=== PATIENT | male | born 1980 | race Caucasian/White ===

== ENCOUNTER 2022-08-26 07:30 | Outpatient (RCR) | payer OTHER, SELFPAY | END 2022-08-29 12:17 | disposition home or self-care (01) | PROVIDERS: PCP Family Medicine; Visit Provider Family Medicine | DX: M75.52 Bursitis of left shoulder (principal); M25.512 Pain in left shoulder; G89.29 Other chronic pain; Z51.89 Encounter for other specified aftercare | CPT/HCPCS: 97110; 97140; 97161 ==

== ENCOUNTER 2024-09-18 14:26 | Emergency (ER) | payer OTHER, SELFPAY ==
--- OUTSIDE RECORDS SUMMARY | 2024-09-18 14:28 | XMS_ITS | Continuity of Care Document ---
Author Name [facility] Organization [facility] Care Team Providers Care Director Card Name Role Phone [facility] Unavailable Unavailable Problems Combined list of problems from Department of Defense and [facility] facilities. It does not include entries that were removed or entered in error. Problem Status Onset Date Problem Type Date of Resolution Comments Source Need For Vaccination Against Influenza Inactive Condition [facility] cellulitis Inactive Condition [facility] contact dermatitis Inactive Condition [facility] Need For Vaccination Hepatitis B Inactive Condition [facility] Need For Vaccination Hepatitis A Inactive Condition [facility] hemorrhoids Active Condition [facility] Need For Vaccination Against Combinations Of Diseases Inactive Condition [facility] Need For Prophylactic Antibiotics Inactive Condition [facility] assess patient condition work-related occupational disease Active Condition [facility] visit for: ears / hearing exam Active Condition [facility] Patient Education - Injury Prevention Active Condition [facility] visit for: services physical Active Condition [facility] Blood Typing Inactive Condition [facility] visit for: screening exam pulmonary tuberculosis Active Condition [facility] Allergies, Adverse Reactions, Alerts Combined list of allergies from Department of Defense and [facility] facilities. It does not include entries that were removed or entered in error. Substance Category Reaction Severity Reaction type Status Date Reported Comments Source No Known Allergies Drug allergy (disorder) active 04/27/2010 [facility] ROULA Campbell Encounters Combined list of: 1) Encounters from Department of Veterans Affairs facilities going back up to thelast 18 months. 2) Encounters from the Department of Defense facilities going back up to 280 months. Location Location Details Encounter Type Encounter Number Reason For Visit Attending Provider ADM Date DC Date Status Disposition Source [facility] ROULA Horowitz(IEP Optometry ) OUTPATIENT [id number] RAFFY REYNOLDS 04/05 Released w/o Limitations [facility] ROULA Horowitz(IEP Optomet ry) [facility] ROULA Horowitz(IEP Soldiers Initial Entry) OUTPATIENT [id number] DAY 1 TALON MCKENZIE 04/05 Released w/o Limitations [facility] ROULA Horowitz([place] Initial Entry) [facility] ROULA Horowitz(IEP Hearing Conservat ion Exam) OUTPATIENT [id number] BONILLA GOMEZ Edgar 04/06 Released w/o Limitations [facility] [place] Conserv ation Exam) [facility] ROULA Horowitz(IEP Soldiers Initial Entry) OUTPATIENT [id number] Day 3 NOAH GEIGER 04/06 Released w/o Limitations [facility] [place]) [facility] [place](C-T[facility] Er Module) OUTPATIENT [id number] MINA Collazo 04/27 Released w/o Limitations [facility] [place](C-TM C Er Module) [facility] ROULA Horowitz(IEP [place]iers Initial Entry) OUTPATIENT [id number] [place] LUKAS HO 05/10 Released w/o Limitations [facility] [place]) [facility] ROULA Horowitz(C-TMC Er Module) OUTPATIENT [id number] MINA BARDALES 06/22 Sick at Home/Quarter s [facility] Grider [facility] [place](C-TM C Er Module) [facility] ROULA Horowitz(IEP Soldiers Initial Entry) OUTPATIENT [id number] SILVER LIMON 06/26 Released w/o Limitations [facility] [place]) Procedures Combined list of: 1) Procedures from Department of Veterans Affairs facilities going back up to thelast 18 months, not all VA non-surgical procedures are included; 2) All procedures from the Department of Defense facilities. Procedure Procedure Type Code Date Perfomer Comments Sourc e Immunization Admin By Intranasal / Oral Route One Vaccine Immunization Admin By Intranasal / Oral Route One Vaccine 96436 06/26/2010 LUKAS HO Influenza Virus Vaccine Intranasal Live Attenuated 06/26/2010 [facility] HO Hepatitis A And Hepatitis B (Intramuscular Use) Adult Dosage Hepatitis A And Hepatitis B (Intramuscular Use) Adult Dosage 01925 05/10/2010 [facility] Immunization Administration By Injection, One Vaccine Immunization Administration By Injection, One Vaccine 02768 05/10/2010 [place] HO Meningococcal (A, C, Y, W-135) Oligosacch Diphtheria Toxoid Conj Vacc 04/07/2010 NOAH GEIGER Vaccines Viral Polio, Inactivated Vaccines Viral Polio, Inactivated 68551 04/07/2010 NOAH GEIGER Tdap Vaccine Tdap Vaccine 71270 04/07/2010 AMINAH GEIGER Hepatitis A And Hepatitis B (Intramuscular Use) Adult Dosage Hepatitis A And Hepatitis B (Intramuscular Use) Adult Dosage 90919 04/07/2010 NOAH GEIGER Immunization Administration By Injection, Each Additional Vaccine 04/07/2010 NOAH GEIGER Physician Supervised Injection Intramuscular Physician Supervised Injection Intramuscular 83986 04/07/2010 NOAH GEIGER Immunization Administration By Injection, One Vaccine Immunization Administration By Injection, One Vaccine 55548 04/07/2010 NOAH GEIGER Injection, penicillin G benzathine, up to 1,200,000 units 04/07/2010 NOAH GEIGER Audiometry Group Testing Audiometry Group Testing 66911 04/06/2010 BONILLA GOMEZ Screening Test Of Visual Acuity, Quantitative, Bilateral Screening Test Of Visual Acuity, Quantitative, Bilateral 38110 04/05/2010 RAFFY REYNOLDS Skin Test Anergy tuberculin Skin Test Anergy tuberculin 73325 04/05/2010 TALON MCKENZIE Immunization Administration By Injection, One Vaccine Immunization Administration By Injection, One Vaccine 32922 04/05/2010 TALON MCKENZIE Venipuncture Venipuncture 84752 04/05/2010 TALON MCKENZIE IMMUNIZATION ADMINISTRATION BY INTRANASAL OR ORAL ROUTE; 1 VACCINE (SINGLE OR COMBINATION VACCINE/TOXOID) 06/26/2010 [facility] HEPATITIS A AND HEPATITIS B VACCINE (HEPA-HEPB), ADULT DOSAGE, FOR INTRAMUSCULAR USE 05/10/2010 [facility] MENINGOCOCCAL CONJUGATE VACCINE, SEROGROUPS A, C, W, Y, QUADRIVALENT, DIPHTHERIA TOXOID CARRIER (MENACWY-D) OR IFT212 CARRIER (MENACWY-CRM), FOR INTRAMUSCULAR USE 04/06/2010 [facility] AUDIOMETRIC TESTING OF GROUPS 04/06/2010 [facility] IMMUNIZATION ADMINISTRATION (INCLUDES PERCUTANEOUS, INTRADERMAL, SUBCUTANEOUS, OR INTRAMUSCULAR INJECTIONS); 1 VACCINE (SINGLE OR COMBINATION VACCINE/TOXOID) 04/05/2010 [facility] SCREENING TEST OF VISUAL ACUITY, QUANTITATIVE, BILATERAL 04/05/2010 [facility] Social History Combined list of available smoking, tobacco, and other social history from Department of Defense and Veterans Affairs facilities. Social History Type Response Date Comment Sour e This section is an empty social history section. [facility]
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
--- OUTSIDE RECORDS SUMMARY | 2024-09-18 14:28 | XMS_ITS | Encounter Summary ---
Author Organization [facility] Address [address] [place] [phone] Phone Care Team Providers Care Label Rewinder Name Role Phone Pcp, No Primary Care Provider Unavailabl e Encounter Details Date Type Department Care Team (Latest Contact Info) Description 08/16/2024 Travel Social History Tobacco Use Types Packs/Day Years Used Date Smoking Tobacco: Never Smokeless Tobacco: Never Alcohol Use Standard Drinks/Week Comments Yes 0 (1 standard drink = 0.6 oz pur e alcohol) Occ. 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 Gender Identity Not on file Sexual Orientation Not on file documented as of this encounter Plan of Treatment Upcoming Encounters Date Type Department Care Team (Late st Contact Info) Description 11/24/2024 1:00 PM CDT [facility] [address] [place] [phone] Scheduled 11/24/2024 1:30 PM CDT [facility] [address] [place] [phone] Osmin Calvo Jr., MD [address] [place] [address] Scheduled 11/24/2024 2:00 PM CDT [facility] [address] [address] Vale Stewart, AUD [address] [place], [place] [id number] [facility], [facility] [address] [place] [address] Scheduled Discharge Disposition: Discharged to home or self care documented as of this encounter Visit Diagnoses Not on filedocumented in this encounter Care Teams Label Rewinder Relationship Specialty Start Date End Date Pcp, No [place] [place] [address] PCP - General 08/16/16 documented as of this encounter
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
[2024-09-18 14:30] VITALS: BP 118/69; PULSE 114; RESP 20; TEMP 37.8; O2SAT 93; BMI 39.7
--- NOTE | 2024-09-18 14:42 | ED.GENADULT ---
HPI - General Adult General Time Seen by Provider: 14:42 Date Seen: 09/18/24 Chief complaint: Cough Stated complaint: Cough, fever, chills, SOB Time Seen by Provider: 09/18/24 14:40 Source: patient and RN notes reviewed Mode of arrival: ambulatory Limitations: no limitations History of Present Illness HPI narrative: This 43-year-old male is coming in feeling absolutely terrible. He developed his illness on . He is coughing, short of breath, had chills and fever, sore throat, chest pain with coughing, lightheaded. He has had generalized body aches with this. He has no underlying chronic medical issues, denies any history of asthma or pulmonary problems. He took 600 mg of ibuprofen at noon. 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 He was also in the hospital on Friday with a friend whom had his . There are family exposures from [place] that are coming down with illness. His daughter had pneumonia 3 weeks ago. Related Data Home Medications ?Medication ?Instructions ?Recorded ?Confirmed gabapentin 300 mg capsule mg PO 09/18/24 Previous Rx's ?Medication ?Instructions ?Recorded oseltamivir 75 mg capsule (Tamiflu) 75 mg PO BID 5 days #10 caps 09/18/24 Allergies Allergy/AdvReac Type Severity Reaction Status Date / Time No Known Drug Allergies Allergy Verified 09/18/24 14:35 Review of Systems Status of ROS: Reports: 6 or more systems reviewed and unremarkable except as noted in History and below Exam Const: Vital Signs, click to edit/add: Vital Signs - 24 hr 09/18/24 14:30 Temperature 100.1 F H Pulse Rate [Pulse Oximeter] 114 H Respiratory Rate 20 Blood Pressure [Ri ght Upper Arm] 118/69 Pulse Oximetry 93 Oxygen Delivery Me thod Room Air This 43-year-old male is alert, interactive but looks like he does not feel well, face is flushed but no rash. Pupils are equal round reactive, sclera clear, symmetrical facial function. Oropharynx somewhat dry mucosa but no exudates erythema, posterior pharynx looks normal. Neck is supple, no adenopathy or masses. Lungs are clear, good air entry, no wheezing crackles, no tachypnea, no accessory muscle use. CV is fast but regular, no murmur, normal S1-S2. Abdomen is soft, no rebound or guarding, no organomegaly. Has left forearm stump, did not ask but either congenital or traumatic loss of distal forearm. Documenting provider has reviewed patient's vital signs: yes Course Course ED Course: Nursing staff collected triple viral swab appropriately on arrival. He is not hypoxic. With his line of employment, daughter with recent pneumonia, did discuss expanding workup with portable chest x-ray. He does look a bit dry, it did just have ibuprofen at noon and is still febrile. Will initiate IV with 500 mL normal saline, 15 mg IV Toradol and a 1000 mg acetaminophen for symptom control. As replace an IV, will get some basic labs including a CBC to help us differentiate his illness. He most definitely has an upper respiratory illness, certainly suspect COVID or influenza at this time. We are also seen RSV. Other differential is bacterial pneumonia. Reevaluation(s) Time of Reevaluation #1: 15:42 Reevaluation #1: Reviewed with patient he has influenza A. He is on the borderline of 48 hour interval for Tamiflu working. His symptoms were for onset. They would still like to try the Tamiflu as he feels so miserable. Vital Signs Vital signs: Initial Vital Signs Temperature 100.1 F H 09/18/24 14:30 Temperature Source Temporal Artery Scan 09/18/24 14:30 Pulse Rate 114 H 09/18/24 14:30 Respiratory Rate 09/18/24 14:30 Blood Pressure 118/69 09/18/24 14:30 Blood Pressure Mean 85 09/18/24 14:30 Blood Pressure Position Sitting 09/18/24 14:30 Pulse Oximetry 93 09/18/24 14:30 Oxygen Delivery Method Room Air 09/18/24 14:30 Vital Signs Temperature 100.1 F H 09/18/24 14:30 Pulse Rate 114 H 09/18/24 14:30 Respiratory Rate 09/18/24 14:30 Blood Pressure 118/69 09/18/24 14:30 Pulse Oximetry 93 09/18/24 14:30 Oxygen Delivery Method Room Air 09/18/24 14:30 Temperature 100.1 F H 09/18/24 14:30 Pulse Rate 114 H 09/18/24 14:30 Respiratory Rate 20 09/18/24 14:30 Blood Pressure 118/69 09/18/24 14:30 Pulse Oximetry 93 09/18/24 14:30 Oxygen Delivery Method Room Air 09/18/24 14:30 Medications Administered Medications: Generic Name Dose Route Start Last Admin Trade Name Toñito PRN Reason Stop Dose Admin Sodium Chloride 500 mls @ 500 mls/hr 09/18/24 14:53 09/18/24 15:11 0.9 % Sodium Chloride 500 Ml IV 09/18/24 15:52 500 mls/hr .Q1H ONE Administration Discontinued Medications Generic Name Dose Route Start Last Admin Trade Name Toñito PRN Reason Stop Dose Admin Acetaminophen 1,000 mg 09/18/24 14:53 09/18/24 15:11 Acetaminophen 500 Mg Tablet PO 09/18/24 14:54 1,000 mg ONCE ONE Administration Ketorolac Tromethamine 15 mg 09/18/24 14:53 09/18/24 15:11 Ketorolac 15 Mg/Ml Inj IVP 09/18/24 14:54 15 mg ONCE ONE Administration Medical Decision Making Lab Data Lab results reviewed: Yes I reviewed the patient's lab results Labs: Lab Results 09/18/24 09/18/24 Range/Units 14:35 15:10 WBC 8.47 (4.50-11.00) K/uL RBC 4.67 (4.30-5.90) m/uL Hgb 14.7 (13.5-17.5) gm/dL Hct 43.4 (37.0-53.0) % MCV 93 (80-100) fL MCH 32 (26-34) pg MCHC 34 (32-36) gm/dL RDW Coeff of Makayla 12.5 (11.5-15.5) % Plt Count 206 (140-440) K/uL Neut % (Auto) 84.7 H (42.0-72.0) % Lymph % (Auto) 7.2 L (20-44) % Llano % (Auto) 7.2 (0.0-11.0) % Eos % (Auto) 0.6 (0.0-7.0) % Baso % (Auto) 0.2 (0.0-3.0) % Neut # (Auto) 7.20 H (1.7-7.0) K/uL Lymph # (Auto) 0.60 L (0.90-2.90) K/uL [place]ano # (Auto) 0.60 (0.00-0.90) K/UL Eos # (Auto) 0.05 (0.00-0.50) K/uL Baso # (Auto) 0.02 (0.00-0.30) K/uL Abs Immat Gran (auto) 0.01 (0.00-0.30) K/uL Imm/Tot Granulo (auto) 0.1 % Sodium 137 (135-149) mmol/L Potassium 3.6 (3.6-5.1) mmol/L Chloride 103 (96-114) mmol/L Carbon Dioxide 25 (20-32) mmol/L Anion Gap 9 (7-15) mEq/L BUN 17 (5-24) mg/dL Creatinine 1.0 (0.5-1.5) mg/dL Estimated Creat Clear 98.35 Estimated GFR 96 ml/min Glucose 126 H (60-115) mg/dL Calcium 8.9 (8.4-10.6) mg/dL SARS-CoV-2 (PCR) Negative SARS-CoV-2 (Negative) Influenza Type A (PCR) POSITIVE PCR FLU A A (Negative) Influenza Type B (PCR) Negative PCR FLU B (Negative) RSV (PCR) Negative PCR RSV (Negative) Imaging Data Chest x-ray: Attestation: I have reviewed the pertinent imaging results. My impression: No evidence of any infiltrate or effusion on my preliminary review of this portable chest x-ray, wait radiology over-read. Radiologist's impression: Patient: JAYME BILLINGSLEY Facility:?[facility] Patient ID:?[id number] Site Patient ID:?[id number]. Site :?[id number] Study:?XRay-Chest Portable-09/18/2024 3:11:17 PM Ordering Physician:?Senthil Russell Final Report: INDICATION: Cough, fever. TECHNIQUE: Chest 1 views. COMPARISON: July 01, 2021. FINDINGS: Cardiovascular and mediastinum: Heart size and vasculature are normal in caliber and appearance. Lungs and pleural spaces: Trace peribronchial thickening. No sign of infiltrate or mass. No sign of pleural effusion. No pneumothorax. Bones and soft tissues: No significant findings. IMPRESSION: Trace peribronchial thickening, likely viral pneumonia in the appropriate clinical setting. No focal consolidations. Dictated by Justice Bautista MD @ 09/18/2024 3:25:13 PM (Electronic Signature) Discharge Plan Discharge Clinical Impression: Influenza A Patient Disposition: Home, Self-Care Condition: Stable Instructions: Influenza (ED) Additional Instructions: Start Tamiflu ALTON for it to be effective to help you at all in this illness. Drink plenty of fluids, will need ongoing alternating Tylenol and ibuprofen for fever and symptom control. Can use [id number] cough and cold medicines as needed for symptom control but checked to see if they contain Tylenol and ibuprofen in them. Do not want you to overdose on these medicines between using bottle Tylenol and ibuprofen and cough medicines that may contain them. Note provided to be off work. He if you are not improving over the next week, feel your worsening at any point, please seek re-evaluation. Should quarantine for the duration of your Tamiflu dosing. Activity Level: Activity as Tolerated Prescriptions: New oseltamivir [Tamiflu] 75 mg capsule 75 mg PO BID 5 Days Qty: 10 0RF No Action gabapentin 300 mg capsule PO Follow Up/Referrals: Hector Langston MD [Staff Physician] - Stand Alone Forms: [employer] Info Instructions
--- NOTE | 2024-09-18 14:53 | CRLHL7_ITS ---
For Patients: As a result of the Cures Act, medical imaging exams and procedure reports are released immediately into your electronic medical record. You may view this report before your referring provider. If you have questions, please contact your health care provider. INDICATION: Cough, fever. TECHNIQUE: Chest 1 views. COMPARISON: July 01, 2021. FINDINGS: Cardiovascular and mediastinum: Heart size and vasculature are normal in caliber and appearance. Lungs and pleural spaces: Trace peribronchial thickening. No sign of infiltrate or mass. No sign of pleural effusion. No pneumothorax. Bones and soft tissues: No significant findings. IMPRESSION: Trace peribronchial thickening, likely viral pneumonia in the appropriate clinical setting. No focal consolidations. Dictated by Justice Bautista MD @ 09/18/2024 3:25:13 PM (Electronically Signed)
[2024-09-18] MEDS: KETOROLAC 15 MG/ML inj IVP (15:11)
[2024-09-18] MEDS: 0.9 % SODIUM CHLORIDE 500 ML 500 ML IV (15:11)
[2024-09-18] MEDS: ACETAMINOPHEN 500 MG TABLET 1000 MG PO (15:11)
[2024-09-18 15:19] LABS: PCR FLU A POSITIVE PCR FLU A (Negative); PCR FLU B Negative PCR FLU B (Negative); PCR RSV Negative PCR RSV (Negative); SARS PCR* Negative SARS-CoV-2 (Negative)
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
--- OUTSIDE RECORDS SUMMARY | 2024-09-18 15:22 | XMS_ITS | Encounter Summary ---
Author Organization 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 Gender Identity Not on file Sexual Orientation Not on file documented as of this encounter Plan of Treatment Upcoming Encounters Date Type Department Care Team (Late st Contact Info) Description 11/24/2024 1:00 PM CDT [facility] [address] [place] [address] Scheduled 11/24/2024 1:30 PM CDT [facility] [address] [place] [address] Osmin Calvo Jr., MD [address] [place] [address] Scheduled 11/24/2024 2:00 PM CDT [facility] [address] [address] Vale Stewart, AUD [address] [place], [place] [id number] Rm2, Christopher [facility] [address] [place] [address] Scheduled Discharge Disposition: Discharged to home or self care documented as of this encounter Visit Diagnoses Not on filedocumented in this encounter Care Teams Sausage Wrapper Relationship Specialty Start Date End Date Pcp, [place] [address] PCP - General 08/16/16 documented as of this encounter
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
--- OUTSIDE RECORDS SUMMARY | 2024-09-18 15:22 | XMS_ITS | Continuity of Care Document ---
Author Name [facility] Organization [facility] Care Team Providers Care Automatic Pinsetter Adjuster Name Role Phone [facility] Unavailable Unavailable Problems Combined list of problems from Department of Defense and [facility] facilities. It does not include entries that were removed or entered in error. Problem Status Onset Date Problem Type Date of Resolution Comments Source Need For Vaccination Against Influenza Inactive Condition [facility] cellulitis Inactive Condition [facility] contact dermatitis Inactive Condition [facility] Need For Vaccination Hepatitis B Inactive Condition [facility] Need For Vaccination Hepatitis A Inactive Condition [facility] hemorrhoids Active Condition [facility] Need For Vaccination Against Combinations Of Diseases Inactive Condition [facility] Need For Prophylactic Antibiotics Inactive Condition [facility] assess patient condition work-related occupational disease Active Condition [facility] visit for: ears / hearing exam Active Condition [facility] Patient Education - Injury Prevention Active Condition [facility] visit for: services physical Active Condition [facility] Blood Typing Inactive Condition [facility] visit for: screening exam pulmonary tuberculosis Active Condition [facility] Allergies, Adverse Reactions, Alerts Combined list of allergies from Department of Defense and [facility] facilities. It does not include entries that were removed or entered in error. Substance Category Reaction Severity Reaction type Status Date Reported Comments Source No Known Allergies Drug allergy (disorder) active 04/27/2010 [facility] ROULA Campbell Encounters Combined list of: 1) Encounters from Department of Veterans Affairs facilities going back up to thelast 18 months. 2) Encounters from the Department of Defense facilities going back up to 280 months. Location Location Details Encounter Type Encounter Number Reason For Visit Attending Provider ADM Date DC Date Status Disposition Source [facility] ROULA Horowitz(IEP Optometry ) OUTPATIENT [id number] RAFFY REYNOLDS 04/05 Released w/o Limitations [facility] ROULA Horowitz(IEP Optomet ry) [facility] ROULA Horowitz(IEP Soldiers Initial Entry) OUTPATIENT [id number] DAY 1 TALON MCKENZIE 04/05 Released w/o Limitations [facility] ROULA Horowitz[place] [facility] ROULA Horowitz(IEP Hearing Conservat ion Exam) OUTPATIENT [id number] BONILLA GOMEZ Edgar 04/06 Released w/o Limitations [facility] [place] Conserv ation Exam) [facility] ROULA Horowitz(IEP [employer] Initial Entry) OUTPATIENT [id number] Day 3 NOAH GEIGER 04/06 Released w/o Limitations [facility] [place] [facility] [place]C-[facility] Er Module) OUTPATIENT [id number] MINA Collazo 04/27 Released w/o Limitations [facility] [place](C-TM C Er Module) [facility] ROULA Horowitz(IEP [employer] Initial Entry) OUTPATIENT [id number] [place] LUKAS HO 05/10 Released w/o Limitations [facility] [place]) [facility] ROULA Horowitz(C-[facility] Er Module) OUTPATIENT [id number] MINA BARDALES 06/22 Sick at Home/Quarter s [facility] [place](C-TM C Er Module) [facility] ROULA Horowitz(IEP [employer] Initial Entry) OUTPATIENT [id number] SILVER LIMON 06/26 Released w/o Limitations [facility] [place] Procedures Combined list of: [...] By Intranasal / Oral Route One Vaccine 38521 06/26/2010 [facility] HO Influenza Virus Vaccine Intranasal Live Attenuated 06/26/2010 [facility] Hepatitis A And Hepatitis B (Intramuscular Use) Adult Dosage Hepatitis A And Hepatitis B (Intramuscular Use) Adult Dosage 20800 05/10/2010 [facility] Immunization Administration By Injection, One Vaccine Immunization Administration By Injection, One Vaccine 34522 05/10/2010 [place] [facility] Meningococcal (A, C, Y, W-135) Oligosacch Diphtheria Toxoid Conj Vacc 04/07/2010 NOAH GEIGER Vaccines Viral Polio, Inactivated Vaccines Viral Polio, Inactivated 02238 04/07/2010 NOAH GEIGER Tdap Vaccine Tdap Vaccine 15899 04/07/2010 AMINAH GEIGER Hepatitis A And Hepatitis B (Intramuscular Use) Adult Dosage Hepatitis A And Hepatitis B (Intramuscular Use) Adult Dosage 12829 04/07/2010 NOAH GEIGER Immunization Administration By Injection, Each Additional Vaccine 04/07/2010 NOAH GEIGER Physician Supervised Injection Intramuscular Physician Supervised Injection Intramuscular 12781 04/07/2010 NOAH GEIGER Immunization Administration By Injection, One Vaccine Immunization Administration By Injection, One Vaccine 08034 04/07/2010 NOAH GEIGER Injection, penicillin G benzathine, up to 1,200,000 units 04/07/2010 NOAH GEIGER Audiometry Group Testing Audiometry Group Testing 24588 04/06/2010 BONILLA GOMEZ Screening Test Of Visual Acuity, Quantitative, Bilateral Screening Test Of Visual Acuity, Quantitative, Bilateral 53646 04/05/2010 RAFFY REYNOLDS Skin Test Anergy tuberculin Skin Test Anergy tuberculin 13688 04/05/2010 TALON MCKENZIE Immunization Administration By Injection, One Vaccine Immunization Administration By Injection, One Vaccine 62478 04/05/2010 TALON MCKENZIE Venipuncture Venipuncture 71166 04/05/2010 TALON MCKENZIE IMMUNIZATION ADMINISTRATION BY INTRANASAL OR ORAL ROUTE; 1 VACCINE (SINGLE OR COMBINATION VACCINE/TOXOID) 06/26/2010 [facility] HEPATITIS A AND HEPATITIS B VACCINE (HEPA-HEPB), ADULT DOSAGE, FOR INTRAMUSCULAR USE 05/10/2010 [facility] MENINGOCOCCAL CONJUGATE VACCINE, SEROGROUPS A, C, W, Y, QUADRIVALENT, DIPHTHERIA TOXOID CARRIER (MENACWY-D) OR AHR727 CARRIER (MENACWY-CRM), FOR INTRAMUSCULAR USE 04/06/2010 [facility] AUDIOMETRIC TESTING OF GROUPS 04/06/2010 [facility] IMMUNIZATION ADMINISTRATION (INCLUDES PERCUTANEOUS, INTRADERMAL, SUBCUTANEOUS, OR INTRAMUSCULAR INJECTIONS); 1 VACCINE (SINGLE OR COMBINATION VACCINE/TOXOID) 04/05/2010 [facility] SCREENING TEST OF VISUAL ACUITY, QUANTITATIVE, BILATERAL 04/05/2010 [facility] Social History Combined list of available smoking, tobacco, and other social history from Department of Defense and Veterans Affairs facilities. Social History Type Response Date Comment Sour e This section is an empty social history section. [facility]
[2024-09-18 15:23] LABS: Basophils Absolute Auto 0.02 K/uL (0.00-0.30); Basophils Percent Auto 0.2 % (0.0-3.0); Eosinophils Absolute Auto 0.05 K/uL (0.00-0.50); Eosinophils Percent Auto 0.6 % (0.0-7.0); Hematocrit 43.4 % (37.0-53.0); Hemoglobin* 14.7 gm/dL (13.5-17.5); Immature Granulocytes Abs Auto 0.01 K/uL (0.00-0.30); Immature Granulocytes Pct Auto 0.1 %; Lymphocytes Percent Auto 7.2 % (20-44); Mean Corpuscular HGB Conc 34 gm/dL (32-36); Mean Corpuscular Hemoglobin 32 pg (26-34); Mean Corpuscular Volume 93 fL (80-100); Monocytes Percent Auto 7.2 % (0.0-11.0); Neutrophils Percent Auto 84.7 % (42.0-72.0); Platelet Count* 206 K/uL (140-440); RDW Coefficient of Variation % 12.5 % (11.5-15.5); Red Blood Count 4.67 m/uL (4.30-5.90); Slide Review Reflex No; White Blood Count* 8.47 K/uL (4.50-11.00)
[2024-09-18 15:40] LABS: Chloride* 103 mmol/L (96-114); Sodium* 137 mmol/L (135-149)
[2024-09-18 15:41] LABS: Potassium* 3.6 mmol/L (3.6-5.1)
[2024-09-18 15:43] LABS: Anion Gap 9 mEq/L (7-15); Blood Urea Nitrogen* 17 mg/dL (5-24); Carbon Dioxide* 25 mmol/L (20-32); Est. Creatinine Clearance* 98.35; Estimated Glomerular Filt Rate 96 ml/min
[2024-09-18 15:44] LABS: Calcium* 8.9 mg/dL (8.4-10.6); Glucose* 126 mg/dL (60-115)
== END 2024-09-18 15:57 | disposition home or self-care (01) ==
PROVIDERS: Emergency Provider Family Medicine; PCP Student in an Organized Health Care Education/Training Program
DX: J09.X2 Influenza due to identified novel influenza A virus with other respiratory manifestations (principal)
CPT/HCPCS: 36415; 71045; 80048; 85025; 87631; 96374; 99284; A9270; J1885; J7030

== ENCOUNTER 2024-12-24 11:30 | Emergency (ER) | payer OTHER, SELFPAY ==
--- OUTSIDE RECORDS SUMMARY | 2024-12-24 11:33 | XMS_ITS | Clinical Summary ---
Author Organization [facility] Address [address] [place] [id number] Care Team Providers Care Transformer Coil Winder Name Role Phone Juan Gunderson Primary Care Provider [phone] Allergies No known active allergies Medications medication order composerIndicati ons:DREW (obstructive sleep apnea) 02/16/2021 AHi-25 diagnosis obstructive sleep apnea; MRD #1 1 unit 03/13/20 21 Active CPAPIndications: DREW (obstructive sleep apnea) CPAP machine for home use at pressure 5-15cm/H2O, nasal mask x1/3month with a nasal cushion x2/mo 1 Each 11 11/22/19 23 Active durable medical equipment (DME)Indications :Below-elbow amputation of left upper extremity, subsequent encounter (HC) Left arm prosthesis sleeve 1 Each 12/25/19 24 Active durable medical equipment (DME)Indications :Below-elbow amputation of left upper extremity, subsequent encounter (HC) Left arm modified prosthesis harness 1 Each 12/25/19 24 Active durable medical equipment (DME)Indications :Below-elbow amputation of left upper extremity, subsequent encounter (HC) Ramin electric prosthetic, body powered hook, left transradial electronic external device 1 Each 01/19/20 24 Active CPAPIndications: DREW (obstructive sleep apnea) CPAP (E0601) machine for home use at pressure: 5-15 , Choice of mask (A7030 or A7034) w/full face cushion (A7031) x1/mo, nasal cushion (A7032) x2/mo, or nasal pillows (A7033) x 2/mo; Length of Need: 99 months; Frequency of use: Daily 1 Each 1 08/06/20 24 Active gabapentin 300 mg capsuleIndicatio ns:Below-elbow amputation of left upper extremity, subsequent encounter (HC) Take two capsules in the morning, two capsules in the afternoon and three capsules at bedtime 210 Capsule 2 12/07/19 25 Active betamethasone dipropionate 0.05 % ointmentIndicati ons:Psoriasis Apply topically to affected area(s) two times daily. As needed to psoriasis areas. 45 g 1 12/07/19 25 Active oxyCODONE-acetam inophen (Percocet) 5-325 mg per tabletIndication s:S/P arthroscopy of right shoulder Take 1 Tablet by mouth every 4 hours if needed for Pain. Max acetaminophen dose: 4000mg in 24 hrs. 30 Tablet 12/16/19 25 Active methocarbamoL 500 mg tabletIndication s:S/P arthroscopy of right shoulder Take 1 Tablet (500 mg) by mouth every 6 hours if needed for Muscle Spasm. 30 Tablet 12/16/19 25 Active aspirin 81 mg enteric coated tabletIndication s:S/P arthroscopy of right shoulder Take 1 Tablet (81 mg) by mouth two times daily with meals for 14 days. 28 Tablet 12/16/19 25 025 Active docusate 100 mg tabletIndication s:S/P arthroscopy of right shoulder Take 1 Tablet (100 mg) by mouth 2 times daily if needed (constipation). 30 Tablet 12/16/19 25 Active ondansetron 4 mg tabletIndication s:S/P arthroscopy of right shoulder Take 1 Tablet (4 mg) by mouth every 8 hours if needed for Nausea/Vomiting. 20 Tablet 12/16/19 25 Active betamethasone dipropionate 0.05% (DIPROSONE 0.05% OINTMENT) 0.05 % ointmentIndicati ons:Psoriasis Apply topically to affected area(s) two times daily. As needed to psoriasis areas. 45 g 1 12/24/19 23 025 Discontin ued(Reord er (E-cancel not sent)) gabapentin (NEURONTIN) 300 mg capsuleIndicatio ns:Below-elbow amputation of left upper extremity, subsequent encounter (HC) Take two capsules in the morning, two capsules in the afternoon and three capsules at bedtime 210 Capsule 11/08/19 25 025 Discontin ued(Reord er (E-cancel not sent)) Active Problems Problem Noted Date Diagnosed Date [...] Encounters Date Type Department Care Team Description 12/15/2024 6:02 AM CDT - 12/15/2024 11:59 PM CDT Hospital Encounter Semaj Shah MD 12/15/2024 Orders Only [address] [phone] Juan Chavez PA <No scans attached> 12/15/2024 Orders Only [address] [place] [address] Semaj Shah MD <No scans attached> 12/15/2024 Orders Only [facility] [address] [phone] Juan Chavez PA <No scans attached> 12/15/2024 Surgery [facility] [address] [facility] [address] [place] [address] Semaj Shah MD CPT 51462 - SUBACROMIAL DECOMPRESSION - RT SHOULDER CPT 28264 - BICEPS TENODESIS - ARTHROSCOPY - RT SHOULDER CPT 21331 - ARTHROSCOPIC DISTAL CLAVICULECTOMY(CAROL) - RT SHOULDER CPT 97615 - EXTENSIVE DEBRIDEMENT - ARTHROSCOPY - RT SHOULDER VS/POSS CPT 94229 - ROTATOR CUFF REPAIR - ARTHROSCOPY - RT SHOULDER JUAN WILL BE THERE ANESTHESIA - GENERAL/BLOCK PLEASE CONTACT [facility] WITH [facility] OP APPTS MADE 12/13/2024 Telephone [facility] [address] [place] [address] Semaj Shah MD SURGERY CONCERN 12/06/2024 9:30 AM CDT Office Visit [facility] [address] [place] [address] Juan Gunderson PA Preoperative Exam (Right shoulder. 12/15/24. Dr. Shah. Lamar surgery.) 12/06/2024 Travel 11/30/2024 Telephone [facility] [address] [place] [address] Semaj Shah MD Prior Authorization (RIGHT SHOULDER SURGERY. [place] PARTIAL APPROVAL/PARTIAL DENIAL. RECONSIDERATION NEEDED) 11/08/2024 10:20 AM SPOT WORKER Ancillary Procedure [facility] [address] [facility] [address] [place] [address] 11/08/2024 10:00 AM SPOT WORKER Office Visit [facility] [id number] [place] [address] [address] [place] [address] Semaj Shah MD Shoulder Pain/problem (Right shoulder) 11/08/2024 Travel 11/07/2024 Refill [facility] [address] [place] [address] Juan Gunderson PA Refill Request (Gabapentin) 09/30/2024 8:00 AM SPOT WORKER Ancillary Procedure [facility] [address] [place] [address] 09/30/2024 Travel from Last 3 Months Immunizations Immunization Administration Dates Next Due Influenza Virus, Unspecified [...] drink = 0.6 oz pur e alcohol) PHQ-2 Answer Date Recorded PHQ-2 TOTAL SCORE [...] is your housing situation today? 1 12/16/2023 Utilities Answer Date Recorded Do you have trouble paying f or utilities (for example, heat, electricity, water, phone)? 1 12/16/2023 Sex and Gender Information Value Date Recorded Sex Assigned at Not on file Legal Sex Male 5:43 AM SPOT WORKER Gender Identity Not on file Sexual Orientation Not on file Obstetrics History Last Filed Vital Signs Vital Sign Reading Time Taken Comments Blood Pressure 122/76 12/06/2024 9:47 AM CDT Pulse 69 12/06/2024 9:47 AM CDT Temperature 36.7 C (98 F) 06/05/2022 1:29 PM CDT Respiratory Rate 24 06/25/2021 3:47 PM CDT Oxygen Saturation 98% 12/06/2024 9:47 AM CDT Inhaled Oxygen Concentration - - Weight 130.2 kg (287 lb) 12/06/2024 9:47 AM CDT Height 177.8 cm (5' 10) 08/06/2024 2:08 PM SPOT WORKER Body Mass Index 41.18 08/06/2024 2:08 PM SPOT WORKER Plan of Treatment Upcoming Encounters Date Type Department Care Team (Late st Contact Info) Description 12/29/2024 10:00 AM CDT [facility] [address] [place] [address] Mulugeta Zazueta PA [address] [place] [address] 1 [place] [address] 02/09/2025 10:00 AM CDT [facility] [address] [place] [phone] Mulugeta Zazueta PA [address] [place] [address] 1 [place] [address] 04/01/2025 10:00 AM CDT Office Visit [facility] [address] [place] [address] Semaj Shah MD [address] [place] [address] 1 [place] [address] Health Maintenance Due Date Last Done Comments HIV for age 15-65 1995 Hepatitis C screening for age 18-79 1998 Depression screening for age 12+ 03/20/2023 03/20/2022, 12/06/2020, 05/18/2019, Additional history exists COVID-19 vaccine series ( season) 2024 Influenza Vaccine (Season Ended) 2025 08/07/2018, 06/29/2016 BMI (ht and wt on same day) for age 18+ 08/06/2025 08/06/2024, 11/21/2022, 11/21/2022, Additional history exists Lipids for age 35-44 06/27/2027 06/27/2022, 10/01/19 17 Tetanus booster 03/02/2032 03/02/2022, 11/14, 03/15/2010 (Completed outside of [facility]), Additional history exists Tdap Completed 03/02/2022, 11/14, 03/15/2010 Pneumococcal series for age 6-49 Aged Out No longer eligible based on patient's age to complete this topic Procedures Procedure Name Priority Date/Time Associated Diagnosis Comments XR SHOULDER 1 VIEW RIGHT Routine 11/08/2024 10:37 AM SPOT WORKER Chronic right shoulder pain MR SHOULDER RIGHT WO Routine 09/30/2024 8:44 AM SPOT WORKER Chronic right shoulder pain LIPID PANEL W REFLEX MEASURED LDL Routine 06/27/2022 1:34 PM CDT Screening for lipid disorders SURGICAL PROCEDURE (TYPE PROCEDURE DESCRIPTION BELOW) Elective Arthritis of right acromioclavicular joint Subacromial impingement of right shoulder Tendonitis of long head of biceps brachii of right shoulder Nontraumatic incomplete tear of right rotator cuff Chronic right shoulder pain from Last 3 Months or Most Recently Relevant to Health Maintenance Results * XR SHOULDER 1 VIEW RIGHT (11/08/2024 10:37 AM SPOT WORKER) Anatomical Region Laterality Modality SHOULDERS, SHOULDER R Digital Ra diography 11/09/2024 5:45 AM SPOT WORKER Impressions 11/09/2024 5:45 AM SPOT WORKER 1. No joint space narrowing or malalignment on this single view. Dictated by Doug Garsia MD @ 11/09/2024 5:45:32 AM (Electronically Signed) Narrative 11/09/2024 5:45 AM SPOT WORKER For Patients: As a result of the Century Cures Act, medical imaging exams and procedure reports are released immediately into your electronic medical record. You may view this report before your referring provider. If you have questions, please contact your health care provider. HISTORY: Right shoulder pain. TECHNIQUE: Axillary view of the right shoulder. COMPARISON: 12/16/2023. FINDINGS: No glenohumeral joint dislocation or significant subluxation on this single view. No acute fracture. No apparent joint space narrowing. Procedure Note Doug Garsia MD - 11/09/2024 For Patients: As a result of the Cures Act, medical imagingexams and procedure reports are released immediately into your electronicmedical record. You may view this report before your referring provider.If you have questions, please contact your health care provider. HISTORY: Right shoulder pain. TECHNIQUE: Axillary view of the right shoulder. COMPARISON: 12/16/2023. FINDINGS: No glenohumeral joint dislocation or significant subluxation on thissingle view. No acute fracture. No apparent joint space narrowing. IMPRESSION: 1. No joint space narrowing or malalignment on this single view. Dictated by Doug Garsia MD @ 11/09/2024 5:45:32 AM (Electronically Signed) us Semaj Shah MD GENERAL IMAGING Final Resul t * MR SHOULDER RIGHT WO (09/30/2024 8:44 AM SPOT WORKER) Anatomical Region Laterality Modality SHOULDER R Magnetic Resonan ce 09/30/2024 10:2 1 AM SPOT WORKER Impressions 09/30/2024 10:21 AM SPOT WORKER 1. No change in severe AC joint arthrosis with widening of the joint space and chronic cystic or erosive change. 2. Moderate supraspinatus and infraspinatus tendinosis with sequelae of chronic partial-thickness tendon tearing. No full-thickness tear or muscle atrophy. 3. Glenohumeral joint maintained. 4. No bursitis. Dictated by Doug Garsia MD @ 09/30/2024 10:21:26 AM (Electronically Signed) Narrative 09/30/2024 10:21 AM SPOT WORKER For Patients: As a result of the Cures Act, medical imaging exams and procedure reports are released immediately into your electronic medical record. You may view this report before your referring provider. If you have questions, please contact your health care provider. CLINICAL INDICATION: Chronic right shoulder pain. COMPARISON IMAGING STUDIES: MRI 12/31/2018. Radiographs 12/16/2023. TECHNICAL: Non-contrast MRI of the right shoulder. Axial, sagittal oblique and coronal oblique T1, PD, PD FS, T2 and T2 FS images. 1.5 Ximena MR scanner. FINDINGS: GLENOHUMERAL JOINT: Effusion: No effusion. Humeral Head Articular Cartilage: Maintained. Glenoid Articular Cartilage: Maintained. Alignment: Maintained. Capsule: No generalized capsular edema. OSSEOUS STRUCTURES: Reactive cystic-like change involves the anterior lateral humeral head-greater tuberosity junction region. No acute fracture or avascular necrosis. CORACOACROMIAL ARCH: Acromial Morphology: Type 2 acromial morphology. No excessive lateral or anterior downward sloping of the acromion. No os acromiale. No significant subacromial spur. Lateral acromial thickness is 8 mm. Acromiohumeral Interval: At its narrowest, the interval measures 7 mm. Coracohumeral Interval: At its narrowest, the coracohumeral interval measures 9 mm. Coracoid index is 18 mm. ACROMIOCLAVICULAR JOINT REGION: Severe AC joint arthrosis with chronic erosions or cysts. AC joint capsular edema. Joint space appears widened. Coracoclavicular ligament intact. BURSAE: No bursal fluid collection. ROTATOR CUFF TENDONS AND MUSCLES AND DELTOID: Supraspinatus and Infraspinatus: Moderate supraspinatus and infraspinatus tendinosis. Mild to moderate suspected sequelae of low-grade partial-thickness undersurface tearing of the distal infraspinatus tendon anteriorly. No full-thickness tear of either distal tendon. No muscle atrophy. Attenuation of the distal supraspinatus tendon reflecting chronic partial-thickness tendon tearing with fraying. Teres Minor: No tendinosis, tendon tearing, muscle atrophy or muscle edema. Subscapularis: Mild distal subscapularis tendinosis. No subscapularis tendon tear or muscle atrophy. Deltoid: No muscle atrophy or edema. BICEPS TENDON, LONG HEAD: The long head of the biceps tendon is intact. No subluxation or dislocation of tendon from bicipital groove. GLENOID LABRUM: No interval tear. OTHER FINDINGS: There is no abnormality within the suprascapular or spinoglenoid notches nor within the quadrilateral space. No axillary adenopathy or mass. Procedure Note Doug Garsia MD - 09/30/2024 For Patients: As a result of the Cures Act, medical imagingexams and procedure reports are released immediately into your electronicmedical record. You may view this report before your referring provider.If you have questions, please contact your health care provider. CLINICAL INDICATION: Chronic right shoulder pain. COMPARISON IMAGING STUDIES: MRI 12/31/2018. Radiographs 12/16/2023. TECHNICAL: Non-contrast MRI of the right shoulder. Axial, sagittal oblique andcoronal oblique T1, PD, PD FS, T2 and T2 FS images. 1.5 [facility] FINDINGS: GLENOHUMERAL JOINT: Effusion: No effusion. Humeral Head Articular Cartilage: Maintained. Glenoid Articular Cartilage: Maintained. Alignment: Maintained. Capsule: No generalized capsular edema. OSSEOUS STRUCTURES: Reactive cystic-like change involves the anterior lateral humeralhead-greater tuberosity junction region. No acute fracture or avascularnecrosis. CORACOACROMIAL ARCH: Acromial Morphology: Type 2 acromial morphology. No excessive lateral oranterior downward sloping of the acromion. No os acromiale. Nosignificant subacromial spur. Lateral acromial thickness is 8 mm. Acromiohumeral Interval: At its narrowest, the interval measures 7 mm. Coracohumeral Interval: At its narrowest, the coracohumeral intervalmeasures 9 mm. Coracoid index is 18 mm. ACROMIOCLAVICULAR JOINT REGION: Severe AC joint arthrosis with chronic erosions or cysts. AC jointcapsular edema. Joint space appears widened. Coracoclavicular ligamentintact. BURSAE: No bursal fluid collection. ROTATOR CUFF TENDONS AND MUSCLES AND DELTOID: Supraspinatus and Infraspinatus: Moderate supraspinatus and infraspinatustendinosis. Mild to moderate suspected sequelae of [id number]-[id number]-[id number] undersurface tearing of the distal infraspinatus tendonanteriorly. No full-thickness tear of either distal tendon. No muscleatrophy. Attenuation of the distal supraspinatus tendon reflecting chronicpartial-thickness tendon tearing with fraying. Teres Minor: No tendinosis, tendon tearing, muscle atrophy or muscleedema. Subscapularis: Mild distal subscapularis tendinosis. No subscapularistendon tear or muscle atrophy. Deltoid: No muscle atrophy or edema. BICEPS TENDON, LONG HEAD: The long head of the biceps tendon is intact. No subluxation ordislocation of tendon from bicipital groove. GLENOID LABRUM: No interval tear. OTHER FINDINGS: There is no abnormality within the suprascapular or spinoglenoid notchesnor within the quadrilateral space. No axillary adenopathy or mass. IMPRESSION: 1. No change in severe AC joint arthrosis with widening of the joint spaceand chronic cystic or erosive change. 2. Moderate supraspinatus and infraspinatus tendinosis with sequelae ofchronic partial-thickness tendon tearing. No full-thickness tear or muscleatrophy. 3. Glenohumeral joint maintained. 4. No bursitis. Dictated by Doug Garsia MD @ 09/30/2024 10:21:26 AM (Electronically Signed) us Mikey Pedraza MD MR Final Res ult * (ABNORMAL) LIPID PANEL W REFLEX MEASURED LDL [[id number]] (06/27/2022 1:34 PM CDT) CHOLESTEROL,TOTAL 216(H) 100 - 199 mg/dL 06/28/2022 12:48 PM CDT [facility] TRIGLYCERIDES 355(H) <150 mg/dL 06/28/2022 12:48 PM CDT [facility] HDL CHOLESTEROL 33(L) >40 mg/dL 12:48 PM CDT [facility] NON-HDL CHOLESTEROL 183(H) <145 mg/dl 06/28/2022 12:48 PM CDT [facility] CHOL/HDL RATIO 6.55(H) <4.50 06/28/2022 12:48 PM CDT [facility] LDL CHOLESTEROL 112 <=130 mg/dL 06/28/2022 12:48 PM CDT [facility] VLDL CHOLESTEROL 71(H) <=30 mg/dL 06/28/2022 12:48 PM CDT [facility] PROVIDER ORDERED STATUS RANDOM 06/28/2022 12:48 PM CDT [facility] Blood BLOOD SPECIMEN / Unknown Venipuncture / Unknown 06/27/2022 1:34 PM CDT 06/27/2022 1:34 PM CDT us Bonnierubens Gandaramatt MARSH CHEMISTRY Final Result [facility] [address] [place] [address], [place] from Last 3 Months or Most Recently Relevant to Health Maintenance Insurance [employer]ICE Advance Directives * Full Code (Latest Code Status on File) Date Activated Date Inactivated Comments 06/29/2013 1:05 AM 07/01/2013 4:03 PM Care Teams Transformer Coil Winder Relationship Specialty Start Date End Date Juan Gunderson PA [address] [place] [address] PCP - General Physician Usability Strategist 02/03/23
[2024-12-24 11:43] VITALS: BP 151/85; PULSE 75; RESP 18; TEMP 36.5; O2SAT 96; BMI 38.7
--- NOTE | 2024-12-24 12:06 | ED_ITS ---
HPI - General Adult General Date Seen: 12/24/24 Chief complaint: Skin/Abscess/Foreign Body Stated complaint: rash on right arm after suergy Time Seen by Provider: 12/24/24 11:57 History of Present Illness HPI narrative: 44-year-old male presenting to the ER today with concern for rash on his right armpit and right arm. He has a past medical history of ADHD, sleep apnea, history of COVID pneumonia, Left arm below the elbow amputation. and chronic right shoulder pain. He had a right shoulder surgery done at the [facility] surgery [place] on 12/15 ( 9 days ago). He had been taking Percocet and muscle relaxers after surgery but stopped taking them yesterday. He is taking aspirin 81 mg daily as advise for postoperative care. Per records from [facility] his surgeon was Dr. Shah. He had biceps tendon tenodesis, arthroscopic distal clavicle excision, extensive debridement. Diagnosis include partial rotator cuff tear, long head of biceps tendinitis, subacromial impingement with subacromial bursitis, AC joint arthritis. SL AP tear. Grade 2 chondromalacia of humeral head. His postoperative recovery had been going well but he started developing a blistery itchy rash in his axilla several days ago, last week and since then it has been spreading out from there and is now affecting his anterior and posterior shoulder, upper arm and now spreading down to his forearm. He notes that the rash is occurring everywhere on his shoulder and arm where he had the skin prep during his operation. He had not been able to wash the skin prep off after his operation because he was told leave the dressings in place to maintain sterility. He has been following his surgeon's instructions strictly. They were finally able to take some of the wrappings in bandages off today. Because of the spreading itchy rash he called his clinic and came here to the ER today. He has not had any fevers. He is not diabetic or immunosuppressed. No swelling in his arm. He had been having some postoperative pain but that is better any stop taking his pain meds and muscle relaxers yesterday. No rashes on other parts of his body. No swelling in his mouth or trouble breathing. Related Data Home Medications ?Medication ?Instructions ?Recorded ?Confirmed gabapentin 300 mg capsule 600 mg PO Q8H 09/18/24 12/24/24 aspirin 81 mg tablet,delayed 81 mg PO BID 12/24/24 12/24/24 release Previous Rx's ?Medication ?Instructions ?Recorded prednisone 20 mg tablet 60 mg (3 x 20 mg) PO DAILY 7 days 12/24/24 #21 tabs Allergies Allergy/AdvReac Type Severity Reaction Status Date / Time No Known Drug Allergies Allergy Verified 12/24/24 11:42 Exam Narrative: Exam Narrative: Constitutional: Appears well-developed and well-nourished. Active. Non-toxic appearing. Very polite. HENT: Head: Atraumatic. No signs of injury. Nose: No nasal discharge. Mouth/Throat: Mucous membranes are moist. Pharynx is normal. Tonsils symmetric. Uvula midline. Airway patent. Eyes: Conjunctivae normal and EOM are normal. Pupils are equal, round, and reactive to light. Right eye exhibits no discharge. Left eye exhibits no discharge. No icterus. Neck: Normal range of motion. Neck supple. No adenopathy. No stridor. Cardiovascular: Normal rate and regular rhythm. No murmur heard. No murmurs, rubs, or gallops. Brisk capillary refill Pulmonary/Chest: Effort normal. No stridor. No respiratory distress. No wheezes.No rhonchi. No rales. Musculoskeletal: Normal range of motion. No edema. No tenderness. No deformity. Previous left below the elbow amputation. He has a shoulder immobilizer in place on the right arm. His shirt is taken up for examination of the right arm. He has bandages over the arthroscopy incisions on his right shoulder and all the incision sites look good. There is no surrounding erythema, no bleeding, no purulent drainage. He does have a rash extending from the shoulder including anterior and posterior all the way down the upper arm and forearm down to the wrist and also including his axilla and the right chest wall adjacent to the axilla. The rash is in some areas confluent erythematous. Under the axilla it is confluent and erythematous with some thin walled vesicles containing clear fluid. In other areas the rash is more punctate small erythematous 1 mm round lesions. The distribution of the rash corresponds to the area of his skin that had been painted orange/yellow by his operative skin preparation agent. No other rash or hives. Neurological: Alert. Normal strength. No cranial nerve deficit or sensory deficit. Coordination normal. GCS eye subscore is 4. GCS verbal subscore is 5. GCS motor subscore is 6. Skin: Skin is warm. No rash noted. Const: Vital Signs, click to edit/add: Vital Signs - 24 hr 12/24/24 11:43 Temperature 97.7 F Pulse Rate [Pulse Oximeter] 75 Respiratory Rate 18 Blood Pressure [Le ft Upper Arm] 151/85 H Pulse Oximetry 96 Oxygen Delivery Me thod Room Air Course Vital Signs Vital signs: Initial Vital Signs Temperature 97.7 F 12/24/24 11:43 Temperature Source Temporal Artery Scan 12/24/24 11:43 Pulse Rate 75 12/24/24 11:43 Respiratory Rate 18 12/24/24 11:43 Blood Pressure 151/85 H 12/24/24 11:43 Blood Pressure Mean 107 H 12/24/24 11:43 Blood Pressure Position Sitting 12/24/24 11:43 Pulse Oximetry 96 12/24/24 11:43 Oxygen Delivery Method Room Air 12/24/24 11:43 Vital Signs Temperature 97.7 F 12/24/24 11:43 Pulse Rate 75 12/24/24 11:43 Respiratory Rate 18 12/24/24 11:43 Blood Pressure 151/85 H 12/24/24 11:43 Pulse Oximetry 96 12/24/24 11:43 Oxygen Delivery Method Room Air 12/24/24 11:43 Temperature 97.7 F 12/24/24 11:43 Pulse Rate 75 12/24/24 11:43 Respiratory Rate 18 12/24/24 11:43 Blood Pressure 151/85 H 12/24/24 11:43 Pulse Oximetry 96 12/24/24 11:43 Oxygen Delivery Method Room Air 12/24/24 11:43 Medical Decision Making MDM Narrative Medical decision making narrative: Very pleasant 44-year-old male presenting to the ER today with an itchy red rash on his right shoulder, axilla, upper arm, and lower arm. He actually had a shoulder arthroscopic surgery on that right extremity about 10 days ago and the rash developed a few days after his operation. Rash is highly consistent with a contact dermatitis /allergic reaction to his skin prep because the distribution of the rash and the edges of the rash correspond almost precisely with the edges of the skin that had been prepped. He has been treating with oral antihistamines and a little bit of topical Corticosteroid but notes the rash is not getting better. he is not having any symptoms of systemic anaphylaxis or systemic allergic reaction. I do not think needs epinephrine, or admission. Based on how widespread the rashes, I do not think it would be very effective to treat with topical corticosteroids. Additionally it would be very difficult for the patient to administer topical steroids up into his axilla, and if placed there they would substantially increase moisture in that area and skin breakdown and maceration. Therefore we will treat him with oral corticosteroids for this rash. Differential here is broad. Based on the absence of fever and the appearance of the rash I think this is allergic in nature, not cellulitis. There is no other swelling or pain in the arm to suggest DVT. No evidence for other petechiae or purpura to suggest severe rash itches meningococcus or ITP , thrombocytopenia. At this point I do not think he needs laboratory workup. Discharge Plan Discharge Clinical Impression: Contact dermatitis Patient Disposition: Home, Self-Care Condition: Stable Instructions: Contact Dermatitis (DC) Additional Instructions: as we discussed, please start on the prednisone today to help treat your rash. You can continue to use Kerry an as an antihistamine to help with itching. You could also use Benadryl as needed for itching. Be careful with Benadryl because it can cause dizziness and sedation. If you have any worsening symptoms that might suggest a worsening allergic reaction such as spreading rash, swelling in your throat, trouble breathing, please come back to the ER right away. if your rashes changing or few developing other symptoms such as fever or if he starts to drain pus from the blisters, that could be a sign of an infection and you should come back to the ER right away. If you have any other concerns, please come back to ER right away. The knee please follow-up with your surgeon at her schedule recheck next Friday. Discussed the rash with him. Find out what sort of skin prep was used in your operation and make sure it is documented in your chart as an allergy. Prescriptions: New prednisone 20 mg tablet 60 mg PO DAILY 7 Days Qty: 21 0RF No Action aspirin 81 mg tablet,delayed release (DR/EC) 81 mg PO BID gabapentin 300 mg capsule 600 mg PO Q8H Follow Up/Referrals: Nelda Gunderson PA-C [Primary Care Provider] - Stand Alone Forms: [employer] Info Instructions
--- OUTSIDE RECORDS SUMMARY | 2024-12-24 12:46 | XMS_ITS | Clinical Summary ---
Author Organization [employer] [facility] [employer] [facility] Address [address] [place] [id number] Care Team Providers Care Hoop Flaring Machine Operator Helper Name Role Phone Juan Gunderson Primary Care Provider [phone] Allergies No known active allergies Medications medication [...] Encounter Semaj Shah MD 12/15/2024 Orders Only [address] [address] Juan Chavez PA <No scans attached> 12/15/2024 Orders Only [address] [place] [address] Semaj Shah MD <No scans attached> 12/15/2024 Orders Only [facility] [address] [id number] Juan Chavez PA <No scans attached> 12/15/2024 Surgery [facility] [address] [facility] [address] [place] [address] Semaj Shah MD CPT 06810 - SUBACROMIAL DECOMPRESSION - RT SHOULDER CPT 53654 - BICEPS TENODESIS - ARTHROSCOPY - RT SHOULDER CPT 69895 - ARTHROSCOPIC DISTAL CLAVICULECTOMY(CAROL) - RT SHOULDER CPT 58763 - EXTENSIVE DEBRIDEMENT - ARTHROSCOPY - RT SHOULDER VS/POSS CPT 26584 - ROTATOR CUFF REPAIR - ARTHROSCOPY - RT SHOULDER JUAN WILL BE THERE ANESTHESIA - GENERAL/BLOCK PLEASE CONTACT [facility] WITH [facility] OP APPTS MADE 12/13/2024 Telephone [facility] [address] [place] [address] Semaj Shah MD SURGERY CONCERN 12/06/2024 9:30 AM CDT Office Visit [facility] [address] [place] [address] Juan Gunderson PA Preoperative Exam (Right shoulder. 12/15/24. Dr. Shah. [place] [facility].) 12/06/2024 Travel 11/30/2024 Telephone [facility] [address] [place] [address] Semaj Shah MD Prior Authorization (RIGHT SHOULDER SURGERY. PA PARTIAL APPROVAL/PARTIAL DENIAL. RECONSIDERATION NEEDED) 11/08/2024 10:20 AM HISTOTECHNOLOGIST SUPERVISOR Ancillary Procedure [facility] [address] [facility] [address] [place] [address] 11/08/2024 10:00 AM HISTOTECHNOLOGIST SUPERVISOR Office Visit [facility] [id number] [place] [address] [address] [place] [address] Semaj Shah MD Shoulder Pain/problem (Right shoulder) 11/08/2024 Travel 11/07/2024 Refill [facility] [address] [place] [address] Juan Gunderson PA Refill Request (Gabapentin) 09/30/2024 8:00 AM HISTOTECHNOLOGIST SUPERVISOR Ancillary Procedure [facility] [address] [place] [address] 09/30/2024 Travel from Last 3 Months Immunizations [...] on file Legal Sex Male 5:43 AM HISTOTECHNOLOGIST SUPERVISOR Gender Identity Not on file Sexual Orientation [...] 177.8 cm (5' 10) 08/06/2024 2:08 PM HISTOTECHNOLOGIST SUPERVISOR Body Mass Index 41.18 08/06/2024 2:08 PM HISTOTECHNOLOGIST SUPERVISOR Plan of Treatment Upcoming Encounters Date Type Department Care Team (Late st Contact Info) Description 12/29/2024 10:00 AM CDT Office Visit [facility] [address] [place] [address] Mulugeta Zazueta PA [address] [place] [address] [address] [place] [address] 02/09/2025 10:00 AM CDT Office Visit [facility] [address] [place] [phone] Mulugeta Zazueta PA [address] [place] [address] [address] [place] [address] 04/01/2025 10:00 AM CDT Office Visit [facility] [address] [place] [address] Semaj Shah MD [address] [place] [address] [address] [place] [address] Health Maintenance Due Date Last Done Comments [...] 1 VIEW RIGHT Routine 11/08/2024 10:37 AM HISTOTECHNOLOGIST SUPERVISOR Chronic right shoulder pain MR SHOULDER RIGHT WO Routine 09/30/2024 8:44 AM HISTOTECHNOLOGIST SUPERVISOR Chronic right shoulder pain LIPID PANEL W [...] SHOULDER 1 VIEW RIGHT (11/08/2024 10:37 AM HISTOTECHNOLOGIST SUPERVISOR) Anatomical Region Laterality Modality SHOULDERS, SHOULDER R Digital Ra diography 11/09/2024 5:45 AM HISTOTECHNOLOGIST SUPERVISOR Impressions 11/09/2024 5:45 AM HISTOTECHNOLOGIST SUPERVISOR 1. No joint space narrowing or malalignment on this single view. Dictated by Doug Garsia MD @ 11/09/2024 5:45:32 AM (Electronically Signed) Narrative 11/09/2024 5:45 AM HISTOTECHNOLOGIST SUPERVISOR For Patients: As a result of the [...] MR SHOULDER RIGHT WO (09/30/2024 8:44 AM HISTOTECHNOLOGIST SUPERVISOR) Anatomical Region Laterality Modality SHOULDER R Magnetic Resonan ce 09/30/2024 10:2 1 AM HISTOTECHNOLOGIST SUPERVISOR Impressions 09/30/2024 10:21 AM HISTOTECHNOLOGIST SUPERVISOR 1. No change in severe AC joint arthrosis with widening of the joint space and chronic cystic or erosive change. 2. Moderate supraspinatus and infraspinatus tendinosis with sequelae of chronic partial-thickness tendon tearing. No full-thickness tear or muscle atrophy. 3. Glenohumeral joint maintained. 4. No bursitis. Dictated by Doug Garsia MD @ 09/30/2024 10:21:26 AM (Electronically Signed) Narrative 09/30/2024 10:21 AM HISTOTECHNOLOGIST SUPERVISOR For Patients: As a result of the [...] T2 and T2 FS images. 1.5 [facility] FINDINGS: GLENOHUMERAL JOINT: Effusion: No effusion. Humeral [...] infraspinatustendinosis. Mild to moderate suspected sequelae of [id number] undersurface tearing of the distal infraspinatus tendonanteriorly. [...] (ABNORMAL) LIPID PANEL W REFLEX MEASURED LDL [[id number]] (06/27/2022 1:34 PM CDT) CHOLESTEROL,TOTAL 216(H) 100 - 199 mg/dL 06/28/2022 12:48 PM CDT [facility] TRIGLYCERIDES 355(H) <150 mg/dL 06/28/2022 12:48 PM CDT [facility] HDL CHOLESTEROL 33(L) >40 mg/dL 12:48 PM CDT [facility] NON-HDL CHOLESTEROL 183(H) <145 mg/dl 06/28/2022 12:48 PM CDT [facility] CHOL/HDL RATIO 6.55(H) <4.50 06/28/2022 12:48 PM CDT [facility] LDL CHOLESTEROL 112 <=130 mg/dL 06/28/2022 12:48 PM CDT [facility] VLDL CHOLESTEROL 71(H) <=30 mg/dL 06/28/2022 12:48 PM CDT [facility] PROVIDER ORDERED STATUS RANDOM 06/28/2022 12:48 PM CDT [facility] Blood BLOOD SPECIMEN / Unknown Venipuncture / Unknown 06/27/2022 1:34 PM CDT 06/27/2022 1:34 PM CDT us Bon[facility]ens Gandaramatt MARSH CHEMISTRY Final Result [facility] [address] [place] [address], [place] from Last 3 Months or Most Recently Relevant to Health Maintenance Insurance [employer] Advance Directives * Full Code (Latest Code Status on File) Date Activated Date Inactivated Comments 06/29/2013 1:05 AM 07/01/2013 4:03 PM Care Teams Hoop Flaring Machine Operator Helper Relationship Specialty Start Date End Date Juan Gunderson PA [address] [place] [address] PCP - General Physician Log Handler 02/03/23
== END 2024-12-24 12:54 | disposition home or self-care (01) ==
LOC: ED 12:45
PROVIDERS: Emergency Provider Emergency Medicine; PCP Student in an Organized Health Care Education/Training Program
DX: L25.9 Unspecified contact dermatitis, unspecified cause (principal)
CPT/HCPCS: 99282; 99283